=== PATIENT | female | born 1960 | race Caucasian/White ===

== ENCOUNTER 2023-03-10 10:40 | Emergency (ER) | payer OTHER, SELFPAY ==
[2023-03-10 10:53] VITALS: BP 165/102; PULSE 83; RESP 16; TEMP 36.2; O2SAT 100; BMI 26.6
--- NOTE | 2023-03-10 13:21 | ED.SKABFB ---
HPI - Skin/Abscess/Foreign Bdy General Chief complaint: Skin/Abscess/Foreign Body Stated complaint: Stung T-1/ redness and swelling getting worse Time Seen by Provider: 03/10/23 12:05 Source: patient Mode of arrival: Ambulatory Limitations: no limitations History of Present Illness HPI narrative: Patient has sustained a bee sting to the volar right forearm yesterday, about 24 hours ago. She is no history of bee sting allergy. She now has significant spread of erythema throughout the right volar forearm. She also has red streaking extending to the right axilla. She is no axillary tenderness. She has no rash elsewhere on her body. She denies sore throat,cough, wheezing or dyspnea. She is no chest discomfort. She is no weakness or dizziness. She is no fever or chills. She is no numbness or weakness the right arm. She is right-hand dominant. Related Data Home Medications Medication Instructions Recorded Confirmed apixaban 5 mg tablet (Eliquis) 5 mg PO BID 11/29/21 04/18/22 metoprolol succinate 25 mg 25 mg PO DAILY 11/29/21 04/18/22 tablet,extended release 24 hr mavacamten 5 mg capsule (Camzyos) 5 mg PO DAILY 02/12/22 04/18/22 Previous Rx's Medication Instructions Recorded doxycycline hyclate 100 mg capsule 100 mg PO BID 7 days #14 caps 03/10/23 prednisone 20 mg tablet 60 mg (3 x 20 mg) PO DAILY 5 days 03/10/23 #15 tabs Allergies Allergy/AdvReac Type Severity Reaction Status Date / Time Sulfa (Sulfonamide Allergy Severe serum Verified 04/18/22 09:42 Antibiotics) sickness Review of Systems Review of Systems ROS Unobtainable: All systems reviewed & are unremarkable except as noted in HPI and below Patient History Medical History Hypertrophic cardiomyopathy Social History Smoking Status: Never smoker Smoking Status: Never smoker Exam Initial Vital Signs Initial Vital Signs: Vital Signs Temperature 97.2 F L 03/10/23 10:53 Pulse Rate 83 03/10/23 10:53 Respiratory Rate 16 03/10/23 10:53 Blood Pressure 165/102 H 03/10/23 10:53 Pulse Oximetry 100 03/10/23 10:53 Oxygen Delivery Method Room Air 03/10/23 10:53 Const General: cooperative, healthy appearing and comfortable [facility] Head: normocephalic and atraumatic Mouth: oral mucosae normal Throat: posterior oropharynx normal Eyes General: Yes appearance normal, both eyes and all related structures Neck Neck: normal visual inspection, supple and No lymphadenopathy Resp Effort & Inspection: normal respiratory effort Auscultation: clear to auscultation bilaterally Cardio Palpation: normal PMI Rate: regular rate Rhythm: regular rhythm Heart Sounds: S1 normal, S2 normal and no murmurs Back/Spine/Pelvis Back: normal to inspection Skin Other: Small pustule in the right mid forearm due to the sting. Dense surrounding erythema with induration warmth consistent with envenomation reaction. Streaky erythema extending to the right axilla consistent with lymphangitis. No significant rash elsewhere on her body. Neuro General: patient alert, patient awake, patient oriented x3 and no focal motor deficits Extrem General: normal to inspection Psych Appearance: grossly normal Course Vital Signs Vital signs: Vital Signs - 8 hr 03/10/23 10:53 Temperature 97.2 F L Pulse Rate 83 Respiratory Rate 16 Blood Pressure 165/102 H Pulse Oximetry 100 Oxygen Delivery Method Room Air MDM - Skin/Abscess/Foreign Bdy Medical Records Medical records narrative: The rash on her forearm he is consistent with a bee sting an envenomation. However the erythema extending to the right axilla is highly suggestive of lymphangitis. A culture was obtained from the sting site. Patient was treated with Rocephin 1 g IM. She will be discharged on doxycycline. I also started on prednisone 60 mg now, with a prescription for an additional 5 days. She should be seen at this ER, or an ER near her his symptoms worsen. See discharge instructions. Discharge Plan Departure Patient Disposition: Home Clinical Impression: Cellulitis Qualifiers: Site of cellulitis: extremity Site of cellulitis of extremity: upper extremity Laterality: right Qualified Code(s): L03.113 - Cellulitis of right upper limb Insect bites Qualifiers: Encounter type: initial encounter Site of insect bite: upper arm Laterality: right Qualified Code(s): S40.861A - Insect bite (nonvenomous) of right upper arm, initial encounter Instructions: DI for Cellulitis -- Adult Activity Restrictions/Additional Instructions: Doxycycline 2 times daily for 7 days. Prednisone 60 mg daily for 5 days. If there is significant increase in redness or swelling of the right arm, or if you develop fever, you should be re-evaluated by your doctor or a nearby ER. Return here if necessary. Prescriptions: New prednisone 20 mg tablet 60 mg PO DAILY 5 Days Qty: 15 0RF doxycycline hyclate 100 mg capsule 100 mg PO BID 7 Days Qty: 14 0RF No Action Eliquis 5 mg tablet 5 mg PO BID metoprolol succinate 25 mg tablet extended release 24 hr 25 mg PO DAILY Camzyos 5 mg capsule 5 mg PO DAILY Referrals: Deirdre Domingo PA-C [Primary Care Provider] - Stand Alone Forms: Patient Portal/API
[2023-03-10] MEDS: predniSONE 20 MG TABLET 60 MG PO (13:52)
[2023-03-10 13:56] VITALS: BP 182/73; PULSE 80; RESP 16; O2SAT 100
[2023-03-10] MEDS: cefTRIAXone 2,000 MG VIAL 1000 MG IM (13:58)
== END 2023-03-10 14:01 | disposition home or self-care (01) ==
PROVIDERS: Emergency Provider Emergency Medicine; PCP Physician Assistant Medical
DX: L03.113 Cellulitis of right upper limb (principal); S40.861A Insect bite (nonvenomous) of right upper arm, initial encounter
CPT/HCPCS: 87070; 87075; 87205; 96372; 99283; J0696